=== PATIENT | male | born 1980 | race Caucasian/White ===

== ENCOUNTER 2016-07-05 11:55 | Emergency (ER) | payer OTHER ==
--- NOTE | 2016-07-05 14:10 | EDM.PDOC ---
[id number]: CAME FROM RT Time Seen by Provider: 07/05/16 12:15 Source: Reports: Patient, Family History Limitations: Reports: No limitations - History of Present Illness INITIAL COMMENTS - FREE TEXT/NARRATIVE: 35-year-old male who apparently was exposed to some noxious chemicals at work a few weeks ago has had several doctor visits and workup since that time and he continues to feel poorly. He went in for some pulmonary function test today and started hyperventilating and became anxious, weak, couldn't move his hands so they laid him down and sent him up to the emergency room. On arrival he was acutely hyperventilating and anxious. O2 saturations were 100%, his other vitals were normal. Severity: moderate Associated Symptoms: Reports: malaise, nausea/vomiting, weakness, other ( Recurring headaches). Denies: confusion - Related Data Allergies/ADRs: Allergies Allergy/AdvReac Type Severity Reaction Status Date / Time No Known Allergies Allergy Verified 07/05/16 12:19 Home Meds: Home Meds NK [No Known Home Meds] 07/05/16 [History] Past Medical History - Past Surgical History GI Surgical History: Reports: Appendectomy Social & Family History - Tobacco Use Smoking Status *Q: Never Smoker - Caffeine Use Caffeine Use: Reports: Soda - Recreational Drug Use Recreational Drug Use: No ED ROS GENERAL - Review of Systems Review Of Systems: See Below Constitutional: Reports: malaise, weakness, decreased appetite. Denies: fever, chills Respiratory: Reports: Shortness of Breath, Cough Cardiovascular: Reports: Chest pain, Lightheadedness, Palpitations Endocrine: Reports: fatigue GI/Abdominal: Reports: Nausea : Reports: no symptoms Musculoskeletal: Reports: other (Diffuse muscle weakness, unable to move his head or upper arm) Skin: Reports: no symptoms Neurological: Reports: Weakness Psychiatric: Reports: No symptoms (Patient appears to be hyperventilating and anxious but denies symptoms) ED EXAM, GENERAL - Physical Exam Exam: See Below Exam Limited By: No limitations General Appearance: alert, moderate distress (Moderately distressed with hyperventilation syndrome, O2 saturations 100%) Eye Exam: bilateral eye: EOMI Neck: other (Patient won't lift his head, unsure of the effort) Respiratory/Chest: lungs clear Cardiovascular: regular rate, rhythm GI/Abdominal: soft, non tender Extremities: other (Some carpal spasm present, patient will not actively move his arms or legs to "weakness") Neurological: alert Psychiatric: anxious Course - Vital Signs Last Recorded V/S: Last Vital Signs Temp 96.5 F 07/05/16 12:07 Pulse 65 07/05/16 12:47 Resp 11 L 07/05/16 12:47 BP 128/69 07/05/16 12:47 Pulse Ox 97 07/05/16 12:47 - Orders/Labs/Meds Labs: Laboratory Tests 07/05/16 07/05/16 07/05/16 Range/Units 12:29 12:51 12:51 WBC 4.6 (4.5-11.0) K/uL RBC 4.92 (4.30-5.90) M/uL Hgb 14.8 (12.0-15.0) g/dL Hct 42.5 (40.0-54.0) % MCV 86 (80-98) fL MCH 30 (27-31) pg MCHC 35 (32-36) % Plt Count 303 (150-400) K/uL Neut % (Auto) 49 (36-66) % Lymph % (Auto) 42 (24-44) % [place] % (Auto) 7 H (2-6) % Eos % (Auto) 1 L (2-4) % Baso % (Auto) 1 (0-1) % Puncture Site Rt radial ABG pH 7.517 H (7.350-7.450) ABG pCO2 27.6 L (35.0-42.0) mmHg ABG pO2 65.5 L (75.0-100.0) mmHg ABG HCO3 22.3 (22.0-26.0) mmol/L ABG Total CO2 18.8 L (23.0-27.0) mmol/L ABG O2 Saturation 94.6 L (95.0-98.0) % ABG O2 Content 19.9 (15.0-23.0) %vol ABG Base Excess 1.0 mm/L ABG Hemoglobin 15.2 (13.5-18.0) g/dL ABG Oxyhemoglobin 93.2 % ABG Carboxyhemoglobin 0.7 (0.0-1.6) % ABG Methemoglobin 0.8 % Kurt Test Passed O2 Delivery Device Room air Oxygen Flow Rate 0 L Sodium 138 L (140-148) mmol/L Potassium 3.5 L (3.6-5.2) mmol/L Chloride 101 (100-108) mmol/L Carbon Dioxide 22 (21-32) mmol/L Anion Gap 18.5 H (5.0-14.0) mmol/L BUN 21 H (7-18) mg/dL Creatinine 1.0 (0.8-1.3) mg/dL Est Cr Clr Drug Dosing 113.17 mL/min Estimated GFR (MDRD) > 60 (>60) Glucose 111 H (74-106) mg/dL Calcium 9.5 (8.5-10.1) mg/dL Total Bilirubin 0.3 (0.2-1.0) mg/dL AST 29 (15-37) U/L ALT 75 (12-78) U/L Alkaline Phosphatase 52 (46-116) U/L Troponin I < 0.017 (0.000-0.056) ng/mL Total Protein 8.7 H (6.4-8.2) g/dL Albumin 4.3 (3.4-5.0) g/dL Globulin 4.4 H (2.3-3.5) g/dL Albumin/Globulin Ratio 1.0 L (1.2-2.2) - Re-Assessments/Exams Free Text/Narrative Re-Assessment/Exam: 07/05/16 14:08 ABGs, CMP and CBC were obtained while the patient rebreathe in a day. Over 20 minutes he calmed down and generally returned to his baseline. CO2 returned low , pH was over 7.5 but the remainder of his labs were reassuring. The patient continued to ask me to explain very strange physical symptoms such as recurring weakness, headaches, nausea et cetera. At that point a CT of his chest was obtained due to the exposure. 07/05/16 15:20 CT was just was normal. Patient remained basically asymptomatic. Copies of all his lab and x-ray were made and he will followup with pulmonology tomorrow. Departure - Departure Time of Disposition: 15:35 Disposition: Home, Self-Care 01 Condition: good Clinical Impression: Acute hyperventilation syndrome Instructions: Hyperventilation Referrals: PCP,None [Primary Care Provider] - Forms: ED Department Discharge Care Plan Goals: Rest tonight, and recheck tomorrow as scheduled.
--- NOTE | 2016-07-05 14:41 | CT ---
Chest wo Cont Total DLP 293 mGycm. INDICATION: recurring dyspnea, exposure to poison COMPARISON: None. FINDINGS: Lungs are clear. No adenopathy. Mild residual thymic tissue. Cholelithiasis. Exam otherwis e negative. IMPRESSION: No acute chest abnormality.
[2016-07-05 15:33] VITALS: BP 128/69
== END 2016-07-05 15:35 | disposition home or self-care (01) ==
LOC: JP.ED 11:55
DX: F45.8 Other somatoform disorders (principal)
CPT/HCPCS: 36600; 71250; 71250-26; 80053; 82803; 84484; 85025; 99284-25

== ENCOUNTER 2019-10-19 07:14 | Day surgery (SDC) | payer MEDICAID ==
[2019-10-19] MEDS ORDERED: fentaNYL 100 MCG/2 ML SDV ONE (07:30)
[2019-10-19] MEDS ORDERED: Midazolam 1 MG/ML 2 ML SDV ONE (07:30)
[2019-10-19] MEDS ORDERED: Propofol 200 MG/20 ML SDV ONE (07:31)
[2019-10-19] MEDS ORDERED: Sodium Chloride 0.9% 1,000 ML IV SCH (07:45)
[2019-10-19 10:17] VITALS: PULSE 53
[2019-10-19 10:38] VITALS: BP 89/59
--- NOTE | 2019-10-19 14:42 | OR ---
DATE OF PROCEDURE: 10/19/2019 SURGEON: Stewart Ashley MD PROCEDURE: Colonoscopy. FINDINGS: Normal colonoscopy. COMPLICATIONS: None. REGIONAL CRA: None. PREOPERATIVE DIAGNOSIS: Family history of colorectal cancer. POSTOPERATIVE DIAGNOSIS: Family history of colorectal cancer. RISKS: Risks, benefits, alternatives, and limitations including, but not limited to infection, bleeding, and perforation were explained to the patient who wished to proceed. We also discussed false positives and false negatives. PROCEDURE IN DETAIL: The patient was placed in left lateral decubitus position. Digital rectal exam was performed without abnormality. Scope was introduced and advanced atraumatically to the ileocecal valve. The ileum was cannulated without abnormality. Scope was brought back through the ascending, transverse, descending colon, and retroflexed. No evidence of old or new blood. No polyps. No masses. No diverticulosis. No evidence of colitis. No abnormalities on retroflexion. The patient tolerated the procedure well. Stewart Ashley MD /[id number]
== END 2019-10-19 11:00 | disposition home or self-care (01) ==
LOC: JP.SDS 07:14
PROVIDERS: ATTEND Surgery
DX: Z12.11 Encounter for screening for malignant neoplasm of colon (principal); F41.1 Generalized anxiety disorder; F32.9 Major depressive disorder, single episode, unspecified; Z80.0 Family history of malignant neoplasm of digestive organs
CPT/HCPCS: 45378; J2250; J2704; J3010; J7030